=== PATIENT | female | born 1985 | race American Indian/Alaskan Native ===

== ENCOUNTER 2018-10-16 09:33 | Outpatient (CLI) | payer OTHER | END 2018-10-16 10:44 | disposition home or self-care (01) | LOC: NST 09:33 | DX: Z34.82 Encounter for supervision of other normal pregnancy, second trimester (principal) ==

== ENCOUNTER 2018-10-23 08:46 | Outpatient (CLI) | payer OTHER | END 2018-10-23 10:08 | disposition home or self-care (01) | LOC: NST 08:46 | DX: Z34.83 Encounter for supervision of other normal pregnancy, third trimester (principal) ==

== ENCOUNTER 2018-11-21 10:45 | Inpatient (IN) | payer OTHER ==
[~2018-11-21] VITALS: Ht 154.9 cm; Wt 78.9 kg
[2018-12-03] MEDS ORDERED: OBSTETRIX DHA1 EACH PO (22:58)
[2018-12-03] MEDS ORDERED: CALCI-MIX500 MG PO (22:59)
== END 2018-12-06 14:47 | disposition home or self-care (01) | DRG 768 ==
LOC: OB/GYN 12-03 19:20 → LDR 12-03 19:20 → OB/GYN 12-03 19:29 → LDR 12-04 08:15 → OB/GYN 12-04 12:15 → LDR 12-09 10:45 → SURH 12-09 10:45
PROVIDERS: ADMIT Obstetrics & Gynecology Maternal & Fetal Medicine
PROC: 4A1HXCZ Monitoring of Products of Conception, Cardiac Rate, External Approach (ICD-10-PCS; 2018-12-03)
PROC: 0DQP0ZZ Repair Rectum, Open Approach (ICD-10-PCS; 2018-12-04)
PROC: 0W8NXZZ Division of Female Perineum, External Approach (ICD-10-PCS; 2018-12-04)
PROC: 10D07Z6 Extraction of Products of Conception, Vacuum, Via Natural or Artificial Opening (ICD-10-PCS; principal; 2018-12-04 10:15)
DX: O70.3 Fourth degree perineal laceration during delivery (principal); Z37.0 Single live birth; O66.5 Attempted application of vacuum extractor and forceps; Z3A.39 39 weeks gestation of pregnancy

== ENCOUNTER 2018-11-28 07:31 | Outpatient (CLI) | payer OTHER | END 2018-11-28 08:42 | disposition home or self-care (01) | LOC: NST 07:31 | DX: Z34.83 Encounter for supervision of other normal pregnancy, third trimester (principal) ==